=== PATIENT | male | born 1965 | race Asian ===

== ENCOUNTER 2016-11-14 04:37 | Observation (INO) | payer OTHER ==
[~2016-11-14] VITALS: Ht 172.7 cm; Wt 76.9 kg
[2016-11-14] VITALS (14 sets, daily range): BP systolic 104–150; BP diastolic 62–97; PULSE 59–100; RESP 14–20; O2SAT 95–98
[~2016-11-14 04:37] MED LIST: TELM40TA4 PO
[2016-11-14] MEDS ORDERED: LORazepam 0.5 mg Tablet PO PRN (05:05)
[2016-11-14] MEDS ORDERED: LOSA50TA37 PO (05:06)
[2016-11-14] MEDS ORDERED: HYG25 PO (05:06)
--- NOTE | 2016-11-14 05:12 | ED.REPORT ---
HPI-General Illness Date of Service Nov 14, 2016 ED Provider: Josephine Christianson MD The pt is a 50 y/o male w/ a hx of liver cirrhosis, hepatitis C, and HTN who presents to the ED via EMS complaining of sudden severe headache onset 04:30 this morning. He c/o associated dizziness, SOB, chest pain, and vomiting (1x). He denies diarrhea, lower extremity numbness, focal weakness, and any other symptoms at this time. Per pt, his chest pain lasted 10 minutes. The pt reports he woke up from dizziness and went to the bathroom to urinate prior to EMS arrival. Per the family, there is no family hx of sudden cardiac . His family states that the pt has a heart condition, but they do not know what specifically. The pt denies history of A-fib. The registered medical assistant and pt's son-in-law (over phone) was used to communicate with the pt and his family. Nursing Notes Stated Complaint: NAUSEA,VOMITING Chief Complaint: Headache Nursing Notes Reviewed: Yes Allergies: Coded Allergies: No Known Allergies (Unverified , 05/09/14) Scheduled Chlorthalidone (Chlorthalidone) 25 Mg Tablet 25 MG PO DAILY Losartan Potassium (Losartan Potassium) 50 Mg Tablet 50 MG PO DAILY Telmisartan (Telmisartan) 40 Mg Tablet 40 MG PO DAILY General Time Seen by MD: 04:56 Chief Complaint Headache Hx Obtained From: Patient, EMS Arrived By: Ambulance Sudden in Onset?: Yes Onset Occurred: Just prior to arrival Symptom Duration: Since onset Location: : Head Quality: Painful Radiation: : Does not radiate Severity: Current: Moderate Severity: Maximum: Severe Recent Healthcare: No recent doctor visit, No recent hospitalization Similar Sx Previous: No Past Medical History Past Medical History Liver cirrhosis Hepatitis C Reports: Hypertension Denies: Atrial fibrillation Past Surgical History Eye Family History Daughter - murmur Denies: Sudden cardiac Smoking History Never Smoker Social History Alcohol Use: Denies alcohol use Drug Use: Denies drug use Other Social History: Good social support, Ambulatory Status Independent Review of Systems Full Review of Systems Respiratory: Reports: Shortness of breath Cardiovascular: Reports: Chest pain GI: Reports: Nausea, Vomiting (1x), Denies: Diarrhea Neurologic: Reports: Dizziness, Headache, Denies: Focal weakness, Numbness Complete sys rev & neg: except as marked. Physical Exam Vital Signs Vital Signs Date Time Temp Pulse Resp B/P Pulse Ox O2 Delivery O2 Flow Rate FiO2 11/14/16 07:17 76 20 112/75 96 Room Air 11/14/16 06:45 77 16 111/78 98 11/14/16 06:00 74 16 123/97 97 11/14/16 05:45 69 16 108/84 97 11/14/16 05:30 66 16 114/81 98 11/14/16 05:16 66 123/75 11/14/16 04:54 36.2 71 16 104/62 95 Room Air Initial VS: Reviewed Head / Eyes: Atraumatic, Normocephalic Neck: Supple, Full range of motion Respiratory: Breath sounds normal, Clear to auscultation, No respiratory distress Abdomen / GI: Soft, Non-tender Extremities: Vascular intact, Neuro intact Skin: Warm, Dry, No cyanosis Psychiatric: Mood/affect normal, Behavior normal Alertness: Positive: Somnolent (but arousable) Head / Eyes: PERRL (with photophobia and no evidence of nystagmus) Cardiovascular: Heart rate NL, Heart sounds NL, No murmurs Heart Rate / Rhythm: Positive: Irregular rhythm (A-fib) Well perfused Neurologic: Oriented X3, CN II - XII intact Non-focal with an NIH stroke scale of 0. Interpretation & Diagnostics Lab Results Interpretation Result Diagram: 11/14/16 0505 11/14/16 0505 Test 11/14/16 05:05 White Blood Count 8.0th/mm3 (3.8-10.1) Red Blood Count 5.51mil/mm3 (4.40-5.80) Hemoglobin 15.3g/dL (13.8-17.2) Hematocrit 44.7% (41.0-50.0) Mean Corpuscular Volume 81.1fL (81-100) Mean Corpuscular Hemoglobin 27.8pg (27.0-35.0) Mean Corpuscular Hemoglobin Concent 34.2% (32.0-37.0) Red Cell Distribution Width 12.9% (12.3-15.4) Platelet Count 90bil/L (150-400) Neutrophils (%) (Auto) 33.9% (40-74) Lymphocytes (%) (Auto) 49.3% (14-46) Monocytes (%) (Auto) 8.5% (4-12) Eosinophils (%) (Auto) 7.7% (0-5) Basophils (%) (Auto) 0.5% (0-3) Prothrombin Time 11.0sec (8.1-12.5) Prothromb Time International Ratio 1.03ratio Activated Partial Thromboplast Time 27.1sec (22.8-33.0) Sodium Level 137mEq/L (134-144) Potassium Level 3.2mEq/L (3.5-5.2) Chloride Level 96mEq/L (97-108) Carbon Dioxide Level 22mmol/L (18-29) Blood Urea Nitrogen 22mg/dL (6-24) Creatinine 0.77mg/dL (0.76-1.27) Estimat Glomerular Filtration Rate 115mL/min (>59) Glucose Level 123mg/dL (60-99) Calcium Level 9.2mg/dL (8.5-10.1) Magnesium Level 2.0mg/dL (1.6-2.6) Total Bilirubin 0.4mg/dL (0.0-1.2) Aspartate Amino Transf (AST/SGOT) 30U/L (0-50) Alanine Aminotransferase (ALT/SGPT) 16U/L (0-44) Alkaline Phosphatase 83U/L (25-150) Troponin T 0.010ug/L (0.0-0.011) Total Protein 7.4g/dL (6.4-8.4) Albumin 4.1g/dL (3.4-5.0) ECG Interpretation ECG Interpretation: Atrial fibrillation with a rate of 74 ST elevation, probable normal early repolarization pattern Time: 04:58 Interpreted by: ED physician ECG Interpretation: X-Ray Chest Interpretation Chest Xray Interpretation: Mild cardiomegaly No pneumonia, rib fractures, or pneumothorax. View: Portable, 1 view Interpretation / Wet Read by: Wet read ED physician CT Head Interpretation Impression: No CT evidence of hemorrhage, mass, or acute infarct. This report was transmitted to the emergency room at 11/14/16 5:34:32 AM PDT by Andres Avendano M.D. Study: Head CT no contrast Interpretation / Wet Read by: Interpret - Radiologist Re-Eval/Medical Decision Med Decision/Clinical Course 40-year-old gentleman woken from sleep this morning with severe dizziness and severe headache at the base of his head. No other focal neurologic findings. Accompanied with these symptoms were 10 minutes of left-sided chest pain not associated with dyspnea but he did have nausea and a single episode of vomiting. There was no diarrhea. Workup included a brain CT that was done within an hour and a half of initial symptoms that showed no evidence of subarachnoid hemorrhage/intracranial bleed. His EKG shows new atrial fibrillation with a question of Brugada syndrome. He has a history of hypertension has not taken his medications this morning and is relatively hypotense on presentation Would like to admit him for new onset atrial fibrillation, chest pain, further evaluation of possibility of Brugada syndrome, further evaluation of possible stroke. Again CT scan of the brain was done with an hour and a half of initial presentation radiology read indicates no bleed I reviewed the scan myself don't see any evidence of bleeding. Subcutaneous Lovenox is given in light of the concerns for atrial fibrillation and brief episode of chest pain. Source of Hx: Old records Time of Eval: 06:20 Re-Evaluation/Progress Note: Pt rechecked by Dr. Christianson for initial exam. Examined pt. Informed pt of diagnosis and plan for MRI and admission. The pt and his family members understand and agree with plan for MRI and admission. Informed the pt and his family that the pt will be admitted to the hospital secondary to concerns of A-fib, low BP despite his HTN, and stroke. They were also informed that brain scan does not show any bleeding, no hint of stroke, or brain infection. I discussed the ECG findings with the pt and his family, as well as my concerns for the risk of Brugada syndrome pending pt's past medical history. I informed the pt and his family that his overall exam doesn't show signs of a stroke or acute heart attack. All questions addressed at this time. Consultation #1: Consulted With: Cardiology Call Returned at: 05:37 Note: Dr. Ross spoke w/ Dr. Fuentes, driver education road instructor, about the pt. He says it is not a STEMI but could be a brugada but if no dysrhythmia it is not important right now. Consultation #2: Referral / Consult Name: Marvel Adair MD Consulted With: Hospitalist Call Returned at: 07:10 Hematology Technician: Will see patient, Agrees with eval, Agrees with plan, Accepts admit Counseled Regarding: Diagnosis, Lab results, Need for admission Discharge & Departure Primary Impression: New onset a-fib Additional Impressions: Severe headache Chest pain Chest pain type: unspecified Qualified Code: R07.9 - Chest pain, unspecified Ruled Out: STEMI (ST elevation myocardial infarction), Intracranial hemorrhage , Subarachnoid hemorrhage Disposition: ADMITTED TO HOSPITAL Discharge Condition All VS Reviewed: Yes Condition: Stable Referrals: Wesley Jackson DO (PCP) Care Transferred to: Dr. Christianson Care Transferred at: 06:00 Scribe Attestation Portions of this note were transcribed by Clint Vera. Dr. Vandana Faye personally performed the history, physical exam and medical decision-making; I reviewed and confirmed the accuracy of the information in the transcribed note. Signed by: Angelina Thompson, 11/14/16. Portions of this note were transcribed by Max Chow and Lali Nicholas. Dr. Meghan Faye personally performed the history, physical exam and medical decision-making; I reviewed and confirmed the accuracy of the information in the transcribed note. Signed by: Max Chow and Angelina Doll, 11/14/16. copies to: Wesley Jackson Howard L MD Nov 14, 2016 05:12 Clint Vera Nov 14, 2016 05:15 Max Chow Nov 14, 2016 06:23 Lali Roberts Nov 14, 2016 07:05 Josephine Christianson MD Nov 14, 2016 07:41
[2016-11-14 05:16] LABS: BASOPHILS % (AUTO) 0.5 % (0-3); EOSINOPHILS % (AUTO) 7.7 % (0-5); MONOCYTES % (AUTO) 8.5 % (4-12); Mean Corpuscular Hemoglobin 27.8 pg (27.0-35.0); Mean Corpuscular Volume 81.1 fL (81-100); NEUTROPHILS % (AUTO) 33.9 % (40-74); Platelet Count 90 bil/L (150-400)
[2016-11-14 05:38] LABS: INR 1.03 ratio
[2016-11-14 05:44] LABS: TROPONIN T 0.01 ug/L (0.0-0.011)
[2016-11-14] MEDS ORDERED: Alum-Mag Hydrox-Simeth 30 mL Suspension PO PRN ×2 (07:50→09:45)
[2016-11-14] MEDS ORDERED: Ondansetron 2 mg/mL 2 mL Inj IVPUSH PRN (07:50)
--- NOTE | 2016-11-14 07:55 | DRSVH ---
PROCEDURE: CT BRAIN WITHOUT CONTRAST ([id number]) INDICATIONS: 50-year-old man with hypertension and headache. TECHNIQUE: Noncontrast 4.5 mm thick angled axial sections acquired from the foramen magnum to the vertex, with c oronal reformats. COMPARISON: None. FINDINGS: Image quality: Excellent. CSF spaces: Basal cisterns are patent. No extra-axial fluid collections. Ventricles are normal in size and shape. Brain: No midline shift. No intracranial masses or hemorrhage. Saenz-white matter interface is norm al. Skull and face: Calvarium and visualized facial bones are intact, without suspicious lesions. Sinuses: Mild ethmoid sinus mucosal thickening. Mastoids are clear. IMPRESSION: No acute intracranial abnormality. No significant discrepancy with the sql report writer radiology preliminary report. Dictated by: Evette Lopez M.D. on 11/14/2016 at 7:51 Approved by: Evette Lopez M.D. on 11/14/2016 at 7:53
--- NOTE | 2016-11-14 08:23 | DRSVH ---
PROCEDURE: X-RAY CHEST ONE VIEW, PORTABLE ([id number]) INDICATIONS: chest pain TECHNIQUE: One view of the chest was acquired. COMPARISON: None. FINDINGS: Surgical changes and devices: None. Lungs and pleura: On this semiupright portable chest examination, no large pneumothorax or large ple ural effusions are seen. No focal infiltrates are seen. Mediastinum: Mediastinal contours appear normal. Heart size is normal. Bones and chest wall: No suspicious bony lesions. Overlying soft tissues appear unremarkable. IMPRESSION: No acute cardiopulmonary process is seen. Dictated by: Gadiel Heard M.D. on 11/14/2016 at 8:21 Approved by: Gadiel Heard M.D. on 11/14/2016 at 8:22
[2016-11-14] MEDS ORDERED: Potassium Chloride Inj 20 MEQ in Dextrose 5% 250 ML IV ONE (09:40)
[2016-11-14] MEDS ORDERED: Polyethylene Glycol (PEG) 17 Gm Powder PO PRN (09:45)
--- NOTE | 2016-11-14 10:17 | DRSVH ---
[facility] [address] [place] [address] Echocardiogram Report Name: DILLON ABREU VStudy Date: 11/14/2016 Height: 68 in Hospital Exam Location: [facility] Weight: 167 lb Gender: Male BSA: 1.9 m2 : 1965 Age: 50 yrs BP: 111/78 mmHg Reason For Study: NEW ONSET ATRIAL FIBRILLATION History: Hypertension Ordering Physician: Performed By: Hanna Painter HOSPITALIST [facility] Referring Physician: Wesley Jackson Interpretation Summary Left ventricular wall thickness is borderline increased. Left ventricular systolic function is normal without focal wall motion abnormalities. The ejection fraction is estimated to be 60-65%. Diastolic function could not be accurately assessed due to atrial fibrillation. The right ventricle is normal size. Right ventricular systolic function is at the lower limits of normal. Pulmonary artery pressures cannot be estimated because of the lack of a measurable TR jet velocity. Both atria are normal in size. The aortic valve appears most likely to be bicuspid. The aortic valve is slightly calcified. The aortic valve opens well. No aortic regurgitation is present. There is no other significant valvular heart disease. The ascending aorta is mildly enlarged. Procedure: A two-dimensional transthoracic echocardiogram with color flow and Doppler was performed. The study quality was technically adequate. There is no prior echocardiogram noted for this patient. The patient was in atrial fibrillation with heart rates between 73-96 bpm during the exam. Left Ventricle: Left ventricular wall thickness is borderline increased. The left ventricle is normal in size. There is no thrombus. Left ventricular systolic function is normal without focal wall motion abnormalities. The ejection fraction is estimated to be 60-65%. Diastolic function could not be accurately assessed due to atrial fibrillation. Right Ventricle: The right ventricle is normal size. Right ventricular systolic function is at the lower limits of normal. Atria: Both atria are normal in size. There is no Doppler evidence for an interatrial shunt. Mitral Valve: The mitral valve is normal in structure and function. There is trace mitral regurgitation. Aortic Valve: The aortic valve is bicuspid. The aortic valve opens well. The aortic valve is slightly calcified. No aortic regurgitation is present. Tricuspid Valve: The tricuspid valve is normal in structure and function. There is a trace or physiologic amount of tricuspid regurgitation. Pulmonary artery pressures cannot be estimated because of the lack of a measurable TR jet velocity. Pulmonic Valve: The pulmonic valve is not well seen, but is grossly normal. There is a trace or physiologic amount of pulmonic regurgitation. There is no other significant valvular heart disease. Great Vessels: The aortic root is normal size. The ascending aorta is mildly enlarged. The aortic arch is normal in size. The pulmonary artery is normal size. The IVC has a measurement of 21 mm. Pericardium/ Pleura There is no pericardial effusion. MMode/2D Measurements & Calculations LVIDd: 4.8 cm LVIDs: 3.1 cm LA A2 area: 19.0 cm FS: 35.9 % LA A4 area: 19.7 cm EPSS: 0.65 cm LA length (vol): 5.4 cm IVSd: 1.1 cm LA vol: 59.0 ml LVPWd: 0.97 cm LA vol index: 31.2 ml/m IVC diam: 2.1 cm RA long axis: 5.4 cm LVOT diam: 2.2 cm RA area: 15.8 cm AoV Openin.9 cm RA vol: 39.6 ml Ao root diam: 3.6 cm RA : 20.9 ml/m2 Aortic Jxn: 2.8 cm asc Aorta Diam: 3.5 cm Ao Arch Diam (Prox Trans): 2.8 cm LV ortiz. diameter/BSA (cm/m^2): 2.5 LV sys. diameter/BSA (cm/m^2): 1.6 RVD1 (basal): 2.9 cm RVD2 (mid): 2.6 cm TAPSE: 1.7 cm Doppler Measurements & Calculations Ao V2 max: 137.5 cm/sec MV E max wilber: 102.4 cm/sec Ao max P.6 mmHg Ao mean P.3 mmHg LVOT Max Wilber: 88.5 cm/sec ED(I,D): 2.6 cm sev ratio: 0.67 Med Peak E' Wilber: 12.0 cm/sec TR max wilber: 187.3 cm/sec E/E' med: 8.5 TR max P.0 mmHg Lat Peak E' Wilber: 13.4 cm/sec PA V2 max: 70.1 cm/sec E/E' lat: 7.7 PA mean P.00 mmHg E/e' average: 8.1 PA Accel Time: 0.08 sec MV dec time: 0.18 sec Ao V2 mean: 81.1 cm/sec Ao V2 VTI: 25.0 cm ED(V,D): 2.5 cm2 LV V1 max P.1 mmHg PA V2 mean: 46.8 cm/sec LV V1 VTI: 16.7 cm ED indexed to BSA (cm^2/m^2): 1.4 Reading Physician:DUNG
[2016-11-14] MEDS ORDERED: Potassium Chloride 20 mEq SR Tablet PO ONE (10:45)
--- NOTE | 2016-11-14 11:28 | PCM.HPMED ---
Subjective Date of Service Nov 14, 2016 Primary Provider: Admitting Physician: Marvel Adair MD Primary Care Physician: Wesley Jackson DO Attending Physician: Marvel Adair MD Admit Status: From the Emergency Department Chief Complaint: Headache History of Present Illness: Alfonso Mora is a 50 year old [place] man with a PMH of HTN, and Hepatitis C with cirrhosis who presents with a one day history of severe headache with some associated left sided chest pain, dizziness, and vomiting. Gathering history on this gentleman is complicated by language and cultural barrier, video pole peeler was used in obtaining and HPI. He states that he awoke this AM with a very severe headache, worse than any he can remember in the past. He further reports an uncomfortable and unproductive urge to urinate. He denies taking any medications or greatly changing his behaviors prior to onset of his headache. He reports in the day preceding his admission he was more or less in his usual state of health. The patient and his family further indicate that he has a history of a heart condition which they cannot recall the name of, though they do deny ever having been told about Atrial Fibrillation. At the time of evaluation the patient was continuing to complain of headache, though reduced in intensity compared to onset, he denies continued chest pain; continues to complain about an uncomfortable urge to urinate, and states that the room is spinning around him "like a helicopter". He denies diarrhea, recent illness, sick contacts, lower extremity numbness or tingling, focal weakness, difficulty with speaking, or changes in cognition. In the ED the patient underwent head CT which was negative, CXR which was also negative. Troponin negative x1. Review of Systems: Comprehensive ROS negative except as outlined above. Allergies Coded Allergies: No Known Allergies (Unverified , 11/14/16) Home Medications None reported PMH Liver cirrhosis Hepatitis C Reports: Hypertension Surgical History Unspecified eye surgery Family History Daughter with a heart murmur Denies sudden cardiac in the family Social History Hx Alcohol Use: No Hx Substance Use: No Smoking Status: Never Smoker Exam Vital Signs Vital Sign - Last Date Time Temp Pulse Resp B/P Pulse Ox O2 Delivery O2 Flow Rate FiO2 11/14/16 10:00 36.5 92 18 133/78 96 Room Air Exam Gen: A/O x3 [place]zer[place] man in moderate acute distress secondary to bladder issues and headache Neck: Supple, non tender, no tenderness with flexion, no JVD HEENT: PERRL, EOMI, no scleral icterus, mucous membranes moist CV: mildly tachycardic with rate approx 100, irregularly irregular with a mild 2 /6 systolic murmur best heard at right sternal border Resp: Lungs CTA BL, no wheezing rales or rhonchi Abd: Soft, non tender, no rebound masses or guarding Neuro: CN 2-12 grossly intact, no focal neurologic deficit Psych: Difficult to assess cross culturally through pole peeler, appearing normal mood and affect Lab and Diagnostics Labs Item Value Date Time Red Blood Count 5.51 mil/mm3 11/14/16 050 Mean Corpuscular Volume 81.1 fL 11/14/16 050 Mean Corpuscular Hemoglobin 27.8 pg 11/14/16 050 Mean Corpuscular Hemoglobin Concent 34.2 % 11/14/16 050 Red Cell Distribution Width 12.9 % 11/14/16 050 Neutrophils (%) (Auto) 33.9 % L 11/14/16 0505 Lymphocytes (%) (Auto) 49.3 % H 11/14/16 0505 Monocytes (%) (Auto) 8.5 % 11/14/16 0505 Eosinophils (%) (Auto) 7.7 % H 11/14/16 0505 Basophils (%) (Auto) 0.5 % 11/14/16 0505 Estimat Glomerular Filtration Rate 115 mL/min 11/14/16 0505 Calcium Level 9.2 mg/dL 11/14/16 0505 Magnesium Level 2.0 mg/dL 11/14/16 0505 Total Bilirubin 0.4 mg/dL 11/14/16 0505 Aspartate Amino Transf (AST/SGOT) 30 U/L 11/14/16 0505 Alanine Aminotransferase (ALT/SGPT) 16 U/L 11/14/16 0505 Alkaline Phosphatase 83 U/L 11/14/16 0505 Troponin T 0.010 ug/L 11/14/16 0505 Total Protein 7.4 g/dL 11/14/16 0505 Albumin 4.1 g/dL 11/14/16 0505 Prothrombin Time 11.0 sec 11/14/16 0505 Prothromb Time International Ratio 1.03 ratio 11/14/16 050 Activated Partial Thromboplast Time 27.1 sec 11/14/16 0505 Result Diagram: 11/14/16 0505 11/14/16 0505 X-Rays, CTs and MRIs X-RAY CHEST ONE VIEW, PORTABLE IMPRESSION: No acute cardiopulmonary process is seen. Dictated by: Gadiel Heard M.D. on 11/14/2016 at 8:21 Approved by: Gadiel Heard M.D. on 11/14/2016 at 8:22 CT BRAIN WITHOUT CONTRAST IMPRESSION: No acute intracranial abnormality. No significant discrepancy with the material handler 2nd shift radiology preliminary report. Dictated by: Evette Lopez M.D. on 11/14/2016 at 7:51 Approved by: Evette Lopez M.D. on 11/14/2016 at 7:53 . 12-lead ECG Atrial fibrillation with a rate of 74 ST elevation, probable normal early repolarization pattern Cardiac Echo Impressions Interpretation Summary Left ventricular wall thickness is borderline increased. Left ventricular systolic function is normal without focal wall motion abnormalities. The ejection fraction is estimated to be 60-65%. Diastolic function could not be accurately assessed due to atrial fibrillation. The right ventricle is normal size. Right ventricular systolic function is at the lower limits of normal. Pulmonary artery pressures cannot be estimated because of the lack of a measurable TR jet velocity. Both atria are normal in size. The aortic valve appears most likely to be bicuspid. The aortic valve is slightly calcified. The aortic valve opens well. No aortic regurgitation is present. There is no other significant valvular heart disease. The ascending aorta is mildly enlarged. Reading Physician:DUNG . Assessment & Plan Alfonso Mora is a 50 year old gentleman with a PMH of Hep C with Cirrhosis and HTN, who presents following acute onset headache and difficulties with urination. Thus far evaluation has been relatively benign which is suggestive or perhaps his symptoms are related to vertigo, NBPPV, or some other occult neuro or cardiac process. Acute Headache, POA. Active -Possibly secondary to new onset NBPPV, exact etiology remains unclear at this time -MR stroke protocol pending, evaluating for possible cerebellar infarction -Head CT negative -Patient in apparently newly discovered Afib, thus thrombo-embolic event is possible -Lumbar puncture deferred due to negative CT head imaging and non specific nature of symptoms -Patient does have outpatient history of headaches, which in the past had been linked to stress and HTN Newly diagnosed Rapid Afib, POA, acute. Active -ECHO shows no structural heart disease beyond potential bicuspid aortic valve -No atrial dilation or other indicators of longstanding Afib -Rate is reasonable in the 70-100 range -Will add Metoprolol Tartrate for further rate control -Of note the patient does appear to have a bicuspid aortic valve with minimal calcification and regurgitation. Difficult Urination, POA, acute on chronic. Active -Bladder scan reveals 675 mls in the bladder -Patient complaining of continued distension of the bladder -Will plan to place worthy Catheter if patient continues to not be able to urinate. -Consider outpatient prostate evaluation once discharged. History of Hep C, POA. Stable -Review of outpatient records indicate this was treated at in 2014 -Liver function tests unremarkable HTN, POA, chronic. Stable -Most recent outpatient records indicated chlorthalidone and Lisinopril as outpatient anti-HTN meds -Will hold for now as patient is borderline hypotensive Patient Status: Inpatient, anticipated length of stay >2 midnights due to uncertainty in diagnosis, severity of condition, and complexity of treatment plan. Pain Evaluation: Adequate Pain Control GI Prophylaxis: H2 shania VTE Prophylaxis: Sub-Q Enoxaparin Resuscitation Status: CPR: Attempt Resuscitation Jackson Dinero DO Nov 14, 2016 11:28
[2016-11-14] MEDS: Ondansetron 2 mg/mL 2 mL Inj IVPUSH PRN ×3 (11:45→21:27)
[2016-11-14 13:48] LABS: APPEARANCE,URINE HAZY (CLEAR,HAZY); COLOR,URINE YELLOW (YELLOW); OCCULT BLOOD,URINE NEGATIVE (NEGATIVE); UROBILINOGEN,URINE NORMAL (NORMAL)
--- NOTE | 2016-11-14 15:43 | DRSVH ---
PROCEDURE: MRI STROKE PROTOCOL ([id number]) Pre- and post-contrast brain MRI, non-contrast brain MR angiogram, pre- and postcontrast neck MR beverly ogram INDICATIONS: worst headache of life, negative CT, global weakness TECHNIQUE: Brain: Noncontrast axial T1 spin echo, axial T2 fast spin echo, sagittal and axial FLAIR, coronal T2 fast spin echo, axial gradient echo, axial diffusion and ADC through the brain. After the administr ation of contrast, axial 3D VIBE of the cranial vasculature and brain. Brain MRA: Non-contrast 3-D time of flight MR angiogram, with multiple lshhteh-dshhfpxof-zxdxmyguit (MIP) reformats performed. Neck MRA: Axial and sagittal TruFISP through the neck. Coronal dynamic MR angiogram during administ ration of contrast in the arterial and venous phases, with 3-dimenstional uumsgmg-wnjdbopfr-upkeszjjp n (MIP) reformats constructed from subtraction images. COMPARISON: [facility], CT, CT BRAIN WO CON, 11/14/2016, 5:26. FINDINGS: Image quality: Limited by patient motion artifact. BRAIN: CSF spaces: Ventricles are normal in size and shape. Basal cisterns are patent. No extra-axial flu id collections. Brain: No intracranial bleeds or mass effects. Saenz-white matter interface is normal. Diffusion we ighted images show no acute ischemic insults. Scattered punctate foci of increased T2 signal noted i n the paraventricular and subcortical white matter tracts is compatible with mild chronic microvascul ar ischemic changes. Brainstem appears normal. Normal intravascular flow voids are present. No abno rmal intracranial enhancement. Skull and face: Calvarial marrow signal is normal. Orbits appear normal. Sinuses: Mucosal thickening noted in the maxillary sinuses bilaterally left greater than right, the s phenoid sinuses bilaterally, the ethmoid air cells bilaterally and the frontal sinuses bilaterally. T he mastoids are clear. BRAIN MR ANGIOGRAM: Anterior circulation: Intracranial internal carotid arteries are normal in size and enhancement. Th e flow within the paired anterior cerebral arteries is normal and symmetric. The flow within the mid dle cerebral arteries is normal and symmetric. The anterior communicating artery is seen. No stenos es, occlusions, or aneurysms. Posterior circulation: The visualized portions of the vertebral arteries demonstrate normal caliber, and join to form a normal appearing basilar artery. The flow within the posterior cerebral arteries is normal and symmetric. No stenoses, occlusions, or aneurysms. NECK MR ANGIOGRAM: Carotids: Great vessels demonstrate a conventional anatomy as they arise from the aortic arch. The origins of the common carotid arteries appear patent. The calibers and courses of both common caroti d arteries are normal. The bifurcation regions appear normal bilaterally. The internal carotid seymour mina demonstrate normal course and caliber. Posterior circulation: The origins of the vertebral arteries appear patent. More superior portions of both vertebral arteries demonstrate normal course and caliber, and join to form a normal appearing basilar artery. Miscellaneous: Subclavian arteries appear patent. Pre-contrast images through the neck show no soft tissue abnormalities. IMPRESSION: BRAIN MRI: 1. No acute intracranial disease process. 2. No areas of acute or chronic infarction. 3. No intracranial hemorrhage. 4. Mild periventricular and subcortical white matter chronic microvascular ischemic changes. 5. Pansinus mucosal thickening most pronounced in the left maxillary sinus. Please correlate with cli nical data to exclude sinusitis. BRAIN MR ANGIOGRAM: Negative examination. NECK MR ANGIOGRAM: Negative examination. The estimate of stenosis included in the report of the imaging study was calculated using the NASCET method Dictated by: Michelle Rivera MD, PhD on 11/14/2016 at 14:25 Approved by: Michelle Rivera MD, PhD on 11/14/2016 at 14:42
--- NOTE | 2016-11-14 16:43 | NUR ---
Admit/voiding/emesis Pt arrived with family at the bedside. A&O, able to participate with makeup sales consultant and answer questions appropriately. C/O extreme dizziness and inability to void for the last 6 hours. Attempted to use urinal but without success. Bladder scanned for around 600cc. Pt wanted to try to stand up to void despite being quite dizzy and unsteady. FWW used +2 nurses. When pt stood up, had multiple emesis episodes (this was following his PO potassium and jello cup). After some rest pt wanted to try to get up again. This time able to make it to the toilet and voided around 500cc. UA sent down to lab. Zofran 4mg given IVP. Upon returning to bed, more episodes of emesis. Another 4mg zofran given. Pt slept for much of the rest of the day. Stated headache but denied wanting anything for pain. No c/o chest pain.
[2016-11-15] VITALS (7 sets, daily range): BP systolic 109–130; BP diastolic 68–80; PULSE 53–80; RESP 16–18; O2SAT 96–99
[2016-11-15] MEDS: Ondansetron 2 mg/mL 2 mL Inj IVPUSH PRN ×4 (00:13→18:14)
--- NOTE | 2016-11-15 03:46 | NUR ---
Pain/nausea Patient reports feeling better via his son's translation. Patient continues with moderate headache and some intermittent nausea. Treated with morphine and zofran. Patient up to bathroom numerous times with family help. Has been sleeping comfortably most of the night.
[2016-11-15 03:53] LABS: BASOPHILS % (AUTO) 0.2 % (0-3); EOSINOPHILS % (AUTO) 1.6 % (0-5); MONOCYTES % (AUTO) 7.7 % (4-12); Mean Corpuscular Hemoglobin 28.1 pg (27.0-35.0); Mean Corpuscular Volume 81.9 fL (81-100); NEUTROPHILS % (AUTO) 70.6 % (40-74); Platelet Count 77 bil/L (150-400)
[2016-11-15 04:05] LABS: INR 1.04 ratio
[2016-11-15 04:16] LABS: Phosphorus 2.5 mg/dL (2.5-4.9)
--- NOTE | 2016-11-15 13:26 | NUR ---
Evaluation completed. Please go to "Notes" then click on "Assessments and Notes" (bottom left corner of screen). Then select appropriate discipline tab on top of screen.
--- NOTE | 2016-11-15 14:38 | PCM.PNMED ---
Subjective Date of Service Nov 15, 2016 Subjective Today the patient reports that he overall feels much improved today, however his headache remains quite severe. He otherwise denies nausea, vomiting, diarrhea, fevers, chills or other constitutional symptoms. Overnight the patient continued to have headaches but the shift was otherwise uneventful. Exam Vital Signs Vital Sign - Last Date Time Temp Pulse Resp B/P Pulse Ox O2 Delivery O2 Flow Rate FiO2 11/15/16 11:20 36.8 59 18 109/68 99 Room Air Intake and Output 11/14/16 11/14/16 11/15/16 Cumulative From/Thru 15:00 23:00 07:00 11/14/16 04:54 - 11/15/16 06:59 Intake Total 100 ml 200 ml 300 ml Output Total 1500 ml 1025 ml 2525 ml Balance -1400 ml -825 ml -2225 ml Intake Oral 100 ml 200 ml 300 ml Output Urine Total 1000 ml 1025 ml 2025 ml Emesis 500 ml 500 ml # Voids 3 3 Exam Gen: A/O x3 Pashto man in mild acute distress secondary to bladder issues and headache Neck: Supple, non tender, no tenderness with flexion, no JVD HEENT: PERRL, EOMI, no scleral icterus, mucous membranes moist CV: mildly tachycardic with rate approx 100, irregularly irregular with a mild 2 /6 systolic murmur best heard at right sternal border Resp: Lungs CTA BL, no wheezing rales or rhonchi Abd: Soft, non tender, no rebound masses or guarding Neuro: CN 2-12 grossly intact, no focal neurologic deficit Psych: Difficult to assess 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, appearing normal mood and affect IVs and Medications Medications Reviewed: Medications were reviewed in detail Lab and Diagnostics Item Value Date Time Red Blood Count 5.24 mil/mm3 11/15/16314 Mean Corpuscular Volume 81.9 fL 11/15/16314 Mean Corpuscular Hemoglobin 28.1 pg 11/15/16314 Mean Corpuscular Hemoglobin Concent 34.3 % 11/15/16314 Red Cell Distribution Width 12.7 % 11/15/16314 Neutrophils (%) (Auto) 70.6 % 11/15/16 031 Lymphocytes (%) (Auto) 19.9 % 11/15/16 031 Eosinophils (%) (Auto) 1.6 % 11/15/16314 Monocytes (%) (Auto) 7.7 % 11/15/16314 Basophils (%) (Auto) 0.2 % 11/15/16314 Estimat Glomerular Filtration Rate 115 mL/min 11/15/16314 Calcium Level 8.9 mg/dL 11/15/16314 Phosphorus Level 2.5 mg/dL 11/15/16314 Magnesium Level 2.0 mg/dL 11/15/16314 Total Bilirubin 1.3 mg/dL H 11/15/16314 Aspartate Amino Transf (AST/SGOT) 25 U/L 11/15/16314 Alanine Aminotransferase (ALT/SGPT) 13 U/L 11/15/16314 Alkaline Phosphatase 56 U/L 11/15/16314 Total Protein 6.9 g/dL 11/15/16314 Albumin 3.9 g/dL 11/15/16314 Result Diagram: 11/15/1631411/15/16314 X-Rays, CTs and MRIs X-RAY CHEST ONE VIEW, PORTABLE IMPRESSION: No acute cardiopulmonary process is seen. Dictated by: Gadiel Heard M.D. on 11/14/2016 at 8:21 Approved by: Gadiel Heard M.D. on 11/14/2016 at 8:22 CT BRAIN WITHOUT CONTRAST IMPRESSION: No acute intracranial abnormality. No significant discrepancy with the manager night radiology preliminary report. Dictated by: Evette Lopez M.D. on 11/14/2016 at 7:51 Approved by: Evette Lopez M.D. on 11/14/2016 at 7:53 . 12-lead ECG Atrial fibrillation with a rate of 74 ST elevation, probable normal early repolarization pattern Cardiac Echo Impressions Interpretation Summary Left ventricular wall thickness is borderline increased. Left ventricular systolic function is normal without focal wall motion abnormalities. The ejection fraction is estimated to be 60-65%. Diastolic function could not be accurately assessed due to atrial fibrillation. The right ventricle is normal size. Right ventricular systolic function is at the lower limits of normal. Pulmonary artery pressures cannot be estimated because of the lack of a measurable TR jet velocity. Both atria are normal in size. The aortic valve appears most likely to be bicuspid. The aortic valve is slightly calcified. The aortic valve opens well. No aortic regurgitation is present. There is no other significant valvular heart disease. The ascending aorta is mildly enlarged. Reading Physician:DUNG . Assessment & Plan Alfonso Mora is a 50 year old gentleman with a PMH of Hep C with Cirrhosis and HTN, who presents following acute onset headache and difficulties with urination. Thus far evaluation has been relatively benign which is suggestive or perhaps his symptoms are related to vertigo, NBPPV, or some other occult neuro or cardiac process. Acute Headache, POA. Active -Possibly secondary to new onset NBPPV, exact etiology remains unclear at this time -MRI reveals no acute intracranial process -Head CT negative -Patient in apparently newly discovered Afib, thus thrombo-embolic event is possible -Lumbar puncture deferred due to negative CT head imaging and non specific nature of symptoms -Patient does have outpatient history of headaches, which in the past had been linked to stress and HTN Newly diagnosed Rapid Afib, POA, acute. Active -ECHO shows no structural heart disease beyond potential bicuspid aortic valve -No atrial dilation or other indicators of longstanding Afib -Rate is reasonable in the 70-100 range -Will add Metoprolol Tartrate for further rate control -Of note the patient does appear to have a bicuspid aortic valve with minimal calcification and regurgitation. Difficult Urination, POA, acute on chronic. Active -Bladder scan reveals 675 mls in the bladder -Patient complaining of continued distension of the bladder -Will plan to place worthy Catheter if patient continues to not be able to urinate. -Consider outpatient prostate evaluation once discharged. History of Hep C, POA. Stable -Review of outpatient records indicate this was treated at in 2014 -Liver function tests unremarkable HTN, POA, chronic. Stable -Most recent outpatient records indicated chlorthalidone and Lisinopril as outpatient anti-HTN meds -Will hold for now as patient is borderline hypotensive Patient Status: The patient continues experience headaches, though neurologic imaging has thus far been negative. Will schedule Stress test tomorrow for new onset Afib, will likely to be able to return home following stress test. Pain Evaluation: Adequate Pain Control GI Prophylaxis: H2 shania VTE Prophylaxis: Sub-Q Enoxaparin VTE Mechanical Devices: Intermittant Pneumatic CD Resuscitation Status: CPR: Attempt Resuscitation Attending Statement The patient was seen and examined together with Dr. Dinero on 11/15/16 and I agree with the history, exam and plan as outlined in the note above. Given patient reported history of chest pain and new onset A-fib will pursue a cardiac stress test in AM Jackson Dinero DO Nov 15, 2016 14:38 Demetrius Roblero Nov 15, 2016 18:38
--- NOTE | 2016-11-15 19:33 | NUR ---
nausea/pain Pt advanced to general diet today, tolerated well. Nausea throughout the day per baseline, did not seem to be related to intake. Zofran given 8mg in AM and 8mg in PM. No emesis today. Headache pain still notable. 08/06. Pt had PRN morphine X2, tylenol, and scheduled Toradol. Effective. Pt understands he is NPO after midnight.
[2016-11-16 00:06] VITALS: BP 124/73; PULSE 65; RESP 16; O2SAT 98
[2016-11-16 03:30] LABS: BASOPHILS % (AUTO) 0.5 % (0-3); EOSINOPHILS % (AUTO) 2.4 % (0-5); MONOCYTES % (AUTO) 9.3 % (4-12); Mean Corpuscular Hemoglobin 27.8 pg (27.0-35.0); Mean Corpuscular Volume 82.8 fL (81-100); NEUTROPHILS % (AUTO) 60.3 % (40-74); Platelet Count 60 bil/L (150-400)
[2016-11-16 03:43] LABS: INR 1.03 ratio
[2016-11-16 03:53] LABS: Phosphorus 3.5 mg/dL (2.5-4.9)
[2016-11-16 04:41] VITALS: BP 124/81; PULSE 67; RESP 16; O2SAT 99
--- NOTE | 2016-11-16 05:24 | NUR ---
pain/nausea pt states his pain is a headache across this forehead and a 2/10 declined pain medication, pt denied any nausea or anxiety. pt voiding a few times also denied feeling the urge to go but unable to go, tele SR with 1st degree av block
[2016-11-16 09:00] VITALS: BP 117/73; PULSE 62; RESP 16; O2SAT 94
[2016-11-16 10:42] VITALS: PULSE 66
[2016-11-16 11:43] VITALS: BP 124/77; PULSE 60; RESP 18; O2SAT 99
[2016-11-16] MEDS: Ondansetron 2 mg/mL 2 mL Inj IVPUSH PRN (12:52)
--- NOTE | 2016-11-16 17:10 | NUR ---
pain/procedure NPO since midnight. Pt states pain at a manageable level all morning. Before he transported for his stress test however, we communicated and decided pain and nausea medications needed. Morphine and Zofran given around 1230. Transport arrived at 1300 to take pt to procedure. Pt was alert and comfortable. Son went with patient. They returned from procedure around 1715. Nurse Sitter still present. aware.
--- NOTE | 2016-11-16 17:26 | DRSVH ---
PROCEDURE: 1 DAY PHARMACOLOGICAL STRESS TEST Rest and pharmacological stress myocardial perfusion SPECT with gated imaging and ejection fraction RADIOPHARMACEUTICAL: 8.5 mCi Tc-99m tetrafosmin IV at rest and 25.2 mCi Tc-99m tetrafosmin IV at peak effect of pharmacological stress. A ghx-ygo-wphhuitv was performed. INDICATIONS: A 50-year-old man with atrial fibrillation and chest pain. He has hypertension. TECHNIQUE: Radiopharmaceutical was injected at peak stress test, and also at rest. SPECT images wer e obtained. SPECT myocardial perfusion images were displayed in short axis, horizontal long axis, an d vertical long axis views. Gated images were reviewed using Auto[employer] software. COMPARISON: None. CARDIAC STRESS: A pharmacologic stress test was performed under the supervision of an attending staff, using an infus ion of Lexiscan. Hemodynamic data: There is normal blood pressure and heart rate response to pharmacologic stress. Symptoms: The patient reports chest heaviness during Lexiscan infusion. Aminophylline: Not needed to EKG: No diagnostic changes of ischemia; rare PVCs. FINDINGS: Raw data: There is good myocardial uptake of radiotracer. No significant motion artifacts. There i s artifact due to hot liver. Left ventricle function: Gated images demonstrate normal left ventricular wall thickening. No segme ntal wall motion abnormalities. No transient ischemic dilation. Left ventricle resting end diastolic volume is normal. Left ventricle stress ejection fraction is greater than 70%; normal range is abov e 45%. Myocardial perfusion: Mildly decreased activity in inferior wall is likely caused by diaphragmatic a ttenuation artifact. Unfortunately, prone imaging could not be obtained due to technical factor. Ther e is otherwise normal distribution of activity in the right and left ventricular myocardium. IMPRESSION: 1. Normal myocardial perfusion images. 2. Normal left ventricular volume and systolic function. 3. Chest heaviness during Lexiscan infusion. No diagnostic EKG changes for ischemia. PQRS ATTESTATIONS: Measure 322 - Is this imaging test primarily performed on a low-risk surgery patient for preoperative evaluation within 30 days preceding their low-risk non-cardiac surgery? Low-risk surgery is defined as cardiac or myocardial infarction less than 1%, including (but not limited to) endoscopic pr ocedures, superficial procedures, cataract surgery, and excisional breast surgery: Answer: No Measure 323 - Is this imaging test performed primarily for the monitoring of an asymptomatic patient who had percutaneous coronary intervention on the visit date or within 2 years of the visit date? An swer: No Measure 324 - Is this imaging test performed primarily for the initial detection and risk assessment on an asymptomatic, low coronary heart disease patient? Low CHD risk definition = clinicians should consider the maximum number of available patient factors used to estimate risk based on [place] (A TP III criteria), typically age, gender, diabetes, smoking status, and use of blood pressure medicati on, and integrate age appropriate estimates for missing elements, such as LDL or standard blood press ure. Answer: No Dictated by: Evette Lopez M.D. on 11/16/2016 at 17:17 Approved by: Evette Lopez M.D. on 11/16/2016 at 17:24
--- NOTE | 2016-11-16 17:50 | NUR ---
Social Work: Brief Note EMR reviewed. Patient is a 50 year old male who was admitted on 11/14/16 for new AFIB, severe KAUFMAN, and chest pain per H&P. Patient's insurance is [facility] and his PCP is Wesley Jackson DO. Patient is currently on day two of observation. MIRIAM visited patient's room in an attempt to complete initial assessment. Patient was out of room for a stress test. Patient's son and sign language interpreter had gone down with patient while he completed the test. A PT evaluation was ordered by . PT evaluation is completed and recommendation was made for patient to discharge home with no needs. Patient resides with family in [place]. Patient resides in a one story home with no steps at the entrance. Patient is I at baseline and is able to complete all ADLs and care needs. Patient has now returned from stress test. Upon arrival to patient's room, MIRIAM was informed by primary RN that patient has completed stress test and is being discharged home today. Patient will discharge home today with no needs. Transportation will be provided by family member who is at bedside. Patient has no additional needs at this time. ESTRADA Guy
--- NOTE | 2016-11-16 18:15 | PCM.DIMED ---
Discharge Instructions Date of Service Nov 16, 2016 Dates of Hospitalization Nov 14, 2016 at 07:47 Discharge Diagnosis Discharge Diagnosis Acute Headache, POA. Active Newly diagnosed Rapid Afib, POA, acute. Active Difficult Urination, POA, acute on chronic. Active History of Hep C, POA. Stable HTN, POA, chronic. Stable . Medication Instructions Additional med instructions You may take Tylenol if you have any mild or moderate headaches, do not take more than 2000 mg in a day. It is very important that you do not drink any alcohol at all, especially in combination with medication. Diet Discharge Diet: No restrictions Activity Discharge Activity: No restrictions Call your provider Call your provider for: Fever or Chills, Shortness of breath, Bleeding, Chest pain, Vomitting, Excessive diarrhea, Weakness (unilateral) Patient Instructions Patient Instructions If you have continued or worsening headaches, especially if they are combined with nausea, numbness, tingling, difficulties with speech, or other concerning symptoms along with headache please notify your primary care provider, or go to the Urgent care or ER for further evaluation. Follow-up plan Please follow up with your primary care provider within 1 week. Follow-up Provider: Pineda Gamboa DO Follow-up with PCP in: 1 week Jackson Dinero DO Nov 16, 2016 18:15
--- NOTE | 2016-11-16 18:34 | PCM.DC.MED ---
Discharge Summary Date of Service Nov 16, 2016 Dates of Hospitalization Date of Hospital Admission Nov 14, 2016 at 07:47 Date of Discharge: Nov 16, 2016 Providers: Admitting Physician: Marvel Adair MD Primary Care Physician: Wesley Jackson DO Attending Physician: Demetrius Roblero Diagnosis at Time of Discharge Diagnosis at Time of Discharge Acute Headache, POA. Active Newly diagnosed Rapid Afib, POA, acute. Active Difficult Urination, POA, acute on chronic. Active History of Hep C, POA. Stable HTN, POA, chronic. Stable . Procedures XRay, CTs & MRIs X-RAY CHEST ONE VIEW, PORTABLE IMPRESSION: No acute cardiopulmonary process is seen. Dictated by: Gadiel Heard M.D. on 11/14/2016 at 8:21 Approved by: Gadiel Heard M.D. on 11/14/2016 at 8:22 CT BRAIN WITHOUT CONTRAST IMPRESSION: No acute intracranial abnormality. No significant discrepancy with the shift supervisor film processing radiology preliminary report. Dictated by: Evette Lopez M.D. on 11/14/2016 at 7:51 Approved by: Evette Lopez M.D. on 11/14/2016 at 7:53 . ECG 12 Lead Atrial fibrillation with a rate of 74 ST elevation, probable normal early repolarization pattern Cardiac Echo Impression Interpretation Summary Left ventricular wall thickness is borderline increased. Left ventricular systolic function is normal without focal wall motion abnormalities. The ejection fraction is estimated to be 60-65%. Diastolic function could not be accurately assessed due to atrial fibrillation. The right ventricle is normal size. Right ventricular systolic function is at the lower limits of normal. Pulmonary artery pressures cannot be estimated because of the lack of a measurable TR jet velocity. Both atria are normal in size. The aortic valve appears most likely to be bicuspid. The aortic valve is slightly calcified. The aortic valve opens well. No aortic regurgitation is present. There is no other significant valvular heart disease. The ascending aorta is mildly enlarged. Reading Physician:AM . Brief History Alfonso Mora is a 50 year old Hebrew man with a PMH of HTN, and Hepatitis C with cirrhosis who presents with a one day history of severe headache with some associated left sided chest pain, dizziness, and vomiting. Gathering history on this gentleman is complicated by language and cultural barrier, video library attendant was used in obtaining and HPI. He states that he awoke this AM with a very severe headache, worse than any he can remember in the past. He further reports an uncomfortable and unproductive urge to urinate. He denies taking any medications or greatly changing his behaviors prior to onset of his headache. He reports in the day preceding his admission he was more or less in his usual state of health. The patient and his family further indicate that he has a history of a heart condition which they cannot recall the name of, though they do deny ever having been told about Atrial Fibrillation. At the time of evaluation the patient was continuing to complain of headache, though reduced in intensity compared to onset, he denies continued chest pain; continues to complain about an uncomfortable urge to urinate, and states that the room is spinning around him "like a helicopter". He denies diarrhea, recent illness, sick contacts, lower extremity numbness or tingling, focal weakness, difficulty with speaking, or changes in cognition. In the ED the patient underwent head CT which was negative, CXR which was also negative. Troponin negative x1. Hospital Course Alfonso Mora is a 50 year old gentleman with a PMH of Hep C with Cirrhosis and HTN, who presents following acute onset headache and difficulties with urination. Thus far evaluation has been relatively benign which is suggestive or perhaps his symptoms are related to vertigo, NBPPV, or some other occult neuro or cardiac process. Acute on chronic Headache, POA. Improved -Possibly secondary to new onset NBPPV, exact etiology remains unclear at this time -MRI reveals no acute intracranial process -Head CT negative -Patient in apparently newly discovered Afib, thus thrombo-embolic event is possible -Lumbar puncture deferred due to negative CT head imaging and non specific nature of symptoms -Patient does have outpatient history of headaches, which in the past had been linked to stress and HTN -Patient was advised to follow up with his PCP for further evaluation. Chest pain of uncertain etiology, POA, Resolved -Etiology uncertain though anxiety would appear to be likely in the setting of negative cardiovascular workup -Stress test, ECHO, and cardiac enzymes not concerning for ACS -Patient was advised to follow up with his PCP for further evaluation. Newly diagnosed Rapid Afib, POA, acute. Resolved -ECHO shows no structural heart disease beyond potential bicuspid aortic valve -No atrial dilation or other indicators of longstanding Afib -Rate is reasonable in the 70-100 range -Will add Metoprolol Tartrate for further rate control -Of note the patient does appear to have a bicuspid aortic valve with minimal calcification and regurgitation. Difficult Urination, POA, acute on chronic. Improved -Bladder scan reveals 675 mls in the bladder -Patient complaining of continued distension of the bladder -Will plan to place worthy Catheter if patient continues to not be able to urinate. -Consider outpatient prostate evaluation once discharged. History of Hep C, POA. Stable -Review of outpatient records indicate this was treated at in 2014 -Liver function tests unremarkable HTN, POA, chronic. Stable -Most recent outpatient records indicated chlorthalidone and Lisinopril as outpatient anti-HTN meds -Will hold for now as patient is borderline hypotensive Exam Vital Signs (Last) Date Time Temp Pulse Resp B/P Pulse Ox O2 Delivery O2 Flow Rate FiO2 11/16/16 11:43 37.0 60 18 124/77 99 Room Air Exam Gen: A/O x3 Hebrew man in NAD Neck: Supple, non tender, no tenderness with flexion, no JVD HEENT: PERRL, EOMI, no scleral icterus, mucous membranes moist CV: RRR, mild 2/6 systolic murmur best heard at right sternal border Resp: Lungs CTA BL, no wheezing rales or rhonchi Abd: Soft, non tender, no rebound masses or guarding Neuro: CN 2-12 grossly intact, no focal neurologic deficit Psych: Difficult to assess cross culturally through library attendant, appearing normal mood and affect Test 11/14/16 05:05 11/14/16 12:30 11/14/16 19:28 11/15/16 15:51 Activated Partial Thromboplast Time 27.1sec (22.8-33.0) Hemoglobin A1c 5.7% (4.8-5.6) Urine Color Yellow (YELLOW) Urine Appearance Hazy (CLEAR,HAZY) Urine pH 6.0 (5.0-8.0) Urine Specific [place] 1.020 (1.003-1.035) Urine Protein Negativemg/dL (NEG,TRACE) Urine Glucose (UA) Negativemg/dL (NEGATIVE) Urine Ketones Negativemg/dL (NEGATIVE) Urine Occult Blood Negative (NEGATIVE) Urine Nitrite Negative (NEGATIVE) Urine Bilirubin Negative (NEGATIVE) Urine Urobilinogen Normalmg/dL (NORMAL) Urine Leukocyte Esterase Negative (NEGATIVE) Urine RBC 0-2/hpf (0-2) Urine WBC 0-5/hpf (0-5) Urine Epithelial Cells Occasional/hpf (NONE-MOD) Urine Crystals None seen (NONE SEEN) Urine Bacteria None/hpf (NONE-FEW) Urine Hyaline Casts None/lpf (NONE) Urine Granular Casts None seen (NONE SEEN) Urine Waxy Casts None seen (NONE SEEN) Urine Red Blood Cell Casts None seen (NONE SEEN) Urine White Blood Cell Casts None seen (NONE SEEN) Urine Mucus Present (None Seen) Urine Trichomonas None seen (NONE SEEN) Urine Yeast None (NONE SEEN) Urinalysis Comment None Urine Culture Reflexed Not indicated Hold Urine Received (Received) Troponin T < 0.010ug/L (0.0-0.011) Test 11/16/16 03:14 White Blood Count 4.1th/mm3 (3.8-10.1) Red Blood Count 5.40mil/mm3 (4.40-5.80) Hemoglobin 15.0g/dL (13.8-17.2) Hematocrit 44.7% (41.0-50.0) Mean Corpuscular Volume 82.8fL (81-100) Mean Corpuscular Hemoglobin 27.8pg (27.0-35.0) Mean Corpuscular Hemoglobin Concent 33.6% (32.0-37.0) Red Cell Distribution Width 12.8% (12.3-15.4) Platelet Count 60bil/L (150-400) Neutrophils (%) (Auto) 60.3% (40-74) Lymphocytes (%) (Auto) 27.3% (14-46) Monocytes (%) (Auto) 9.3% (4-12) Eosinophils (%) (Auto) 2.4% (0-5) Basophils (%) (Auto) 0.5% (0-3) Prothrombin Time 11.0sec (8.1-12.5) Prothromb Time International Ratio 1.03ratio Sodium Level 139mEq/L (134-144) Potassium Level 3.6mEq/L (3.5-5.2) Chloride Level 99mEq/L (97-108) Carbon Dioxide Level 26mmol/L (18-29) Blood Urea Nitrogen 25mg/dL (6-24) Creatinine 1.03mg/dL (0.76-1.27) Estimat Glomerular Filtration Rate 82mL/min (>59) Glucose Level 99mg/dL (60-99) Calcium Level 8.8mg/dL (8.5-10.1) Phosphorus Level 3.5mg/dL (2.5-4.9) Magnesium Level 2.0mg/dL (1.6-2.6) Total Bilirubin 0.9mg/dL (0.0-1.2) Aspartate Amino Transf (AST/SGOT) 24U/L (0-50) Alanine Aminotransferase (ALT/SGPT) 13U/L (0-44) Alkaline Phosphatase 58U/L (25-150) Total Protein 6.9g/dL (6.4-8.4) Albumin 3.8g/dL (3.4-5.0) Discharge Medications Discharge Medications Chlorthalidone (Chlorthalidone) 25 Mg Tablet 25 MG PO HS (Reported) Losartan Potassium (Losartan Potassium) 50 Mg Tablet 50 MG PO DAILY (Reported) Additional med instructions You may take Tylenol if you have any mild or moderate headaches, do not take more than 2000 mg in a day. It is very important that you do not drink any alcohol at all, especially in combination with medication. Followup Plan Disposition: Home Follow-up plan Please follow up with your primary care provider within 1 week. Discharge Diet: No restrictions Discharge Activity: No restrictions Patient Instructions If you have continued or worsening headaches, especially if they are combined with nausea, numbness, tingling, difficulties with speech, or other concerning symptoms along with headache please notify your primary care provider, or go to the Urgent care or ER for further evaluation. Follow-up Provider: Pineda Gamboa DO Follow-up with PCP in: 1 week Time spent Time spent planning and coordinating discharge greater than 35 minutes. Attending Statement The patient was seen and examined together with Dr. Dinero on 11/16/16 and I agree with the history, exam and plan as outlined in the note above. copies to: Pineda Gamboa David E DO Nov 16, 2016 18:34 Demetrius Roblero Nov 17, 2016 08:20
--- NOTE | 2016-11-16 20:30 | NUR ---
discharge pt dcd home with family using the translator/interpreter on a stick was able to give discharge instructions to pt and family all questions answered, encouraged pt to follow up with PCP, confirmed discharge medications with doctor. pt denies any pain at time of DC, family taking al pts belongings with him. tele dcd and IV dcd.
== END 2016-11-16 20:15 | disposition home or self-care (01) ==
LOC: SED 04:37 → EDBD 04:37 → EDUNIT# 04:37 → PCC 07:47
PROVIDERS: ADMIT Hospitalist; ATTEND Internal Medicine
DX: I48.91 Unspecified atrial fibrillation (principal); R51 Headache; R07.9 Chest pain, unspecified; R39.198 Other difficulties with micturition; I10 Essential (primary) hypertension; K74.60 Unspecified cirrhosis of liver; Z86.19 Personal history of other infectious and parasitic diseases
CPT/HCPCS: 36415; 70450; 70549; 70553; 71010; 78452; 80053; 81000; 82948; 83036; 83735; 84100; 84484; 85025; 85610; 85730; 93005; 93017; 96372; 96374; 96375; 96376; 97161; 99285; A9502; A9585; C8929; G0378; J1650; J1885; J2270; J2405; J2785